=== PATIENT | male | born 1960 | race Caucasian/White ===

== ENCOUNTER 2018-05-26 15:12 | Emergency (ER) | payer MEDICAID ==
[~2018-05-26] VITALS: Ht 175.3 cm; Wt 90.7 kg
[2018-05-26 15:56] VITALS: BP 117/75
== END 2018-05-26 18:55 | disposition left against medical advice (07) ==
LOC: ER 15:21
DX: Z45.2 Encounter for adjustment and management of vascular access device (principal); Z53.21 Procedure and treatment not carried out due to patient leaving prior to being seen by health care provider